=== PATIENT | female | born 1985 | race Caucasian/White ===

== ENCOUNTER 2019-02-10 21:16 | Inpatient (IN) ==
[2019-02-10] MEDS ORDERED: Ketorolac 15 MG/ML VIAL IVP ONE (21:45)
[2019-02-10] MEDS ORDERED: Ondansetron 4 MG/2 ML VIAL IVP ONE (21:45)
--- NOTE | 2019-02-10 21:53 | Emergency Department Note ---
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 No other associated co mplaints with it. She denies any vaginal discharge, vaginal bleeding, dysuria. Patient's pain is sharp and radiates to the left flank. She does have a previous history of kidney stones but states this feels a little bit different. The patient denies any chest pain, nausea, vomiting, diarrhea, melena, hematochezia. She does also state that her significant other is a new sexual partner and they are barrier contraceptive broke during last sexual intercourse. The patient states that she wants just a basic test for basic STD. Patient is adamant that she is having no vaginal discharge at this time. Pain Scale: 10 - Related Data Previous Rx's Medication Instructions Recorded Amoxicillin 875 mg PO BID #20 tablet 07/12/15 Allergies Allergy/AdvReac Type Severity Reaction Status Date / Time No Known Allergies Allergy Verified 02/10/19 21:23 All systems ED: reviewed and negative except as stated. Constitutional: Denies: fever, chills, weakness Eyes: Denies: vision change ENT ED: Denies: dysphagia Cardiovascular: Denies: chest pain Respiratory: Denies: dyspnea Gastrointestinal: Reports: abdominal pain. Denies: nausea, vomiting, diarrhea, constipation, hematemesis, melena, hematochezia Genitourinary: Denies: urgency, dysuria, frequency, hematuria, discharge, abnormal menses Musculoskeletal: Denies: back pain Integumentary: Denies: rash Neurological: Denies: headache Abdominal Pain PMH - Past Medical History Medical history: Reports: no medical history Female Surgical History: Reports: no surgical history Psychiatric history: Reports: anxiety - Social History Smoking status: Current every day smoker Alcohol use: Reports: none Drug use: Reports: other (Methadone) Physical Exam - General Limitations: no limitations General appearance: alert, in no apparent distress - Head Head exam: atraumatic, normocephalic, normal inspection - Eye Eye exam: Present: normal appearance, PERRL, EOMI - ENT ENT exam: normal exam, normal oropharynx, mucous membranes moist - Neck Neck exam: Present: normal inspection - Chest Chest inspection: Present: normal inspection, symmetric chest wall rise - Respiratory Respiratory exam: Present: normal lung sounds bilaterally - Cardiovascular Cardiovascular exam: Present: regular rate, normal rhythm - Abdominal Exam Abdominal exam: Present: soft, tenderness (Lower abdomen). Absent: distention, guarding, rebound, trauma, incision, psoas sign, Kuhn's sign, Rovsing's sign, tenderness at McBurney's Point - Extremities Exam Extremities exam: Present: normal inspection, full ROM, normal capillary refill. Absent: tenderness, pedal edema - Back Exam Back exam: Present: normal inspection, full ROM, CVA tenderness (L). Absent: tenderness, CVA tenderness (R) - Neurological Exam Neurological exam: Present: alert, oriented X3 - Skin Skin exam: Present: warm, dry, intact, normal color Course - Reevaluation(s) Reevaluation #1: Patient found to have a positive test here in the emergency department. A hCG quantitative level was obtained and was greater than 1500. Given the fact that is above the discriminatory zone, we will perform a pelvic ultrasound to determine if this is a sign of ectopic . The patient's urine is borderline infected. He will be sent for culture. In addition the patient is noted to have a leukocytosis which may be reactionary to the patient's pain. I am concerned about the patient's positive test and the lower, pain the patient is experiencing at this time. Patient ran stable here in the ED and is otherwise resting comfortably in the room. Time: 01:40 Reevaluation #2: I spoke with mental health tech who stated that she was a little suspicious. I looked at the ultrasound is reported currently pending. There was a questionable gestational sac outside of the uterus. Given the patient's elevated quantitative level at 2083 we will speak to MEAT COUNTER CLERK. Time: 02:42 - Consultations Consultation #1: I spoke with Dr. Haskins in ME[employer] [facility]TER [employer]ERK who requested that we administer IV Toradol at this time. She stated go ahead and wait until the formal report is resulted and see if the patient's pain is better controlled. Time: 02:49 Vital Signs Temperature 98.5 F 02/10/19 21:19 Pulse Rate 94 02/10/19 21:19 Respiratory Rate 20 02/10/19 21:19 Blood Pressure 141/90 02/10/19 21:19 O2 Sat by Pulse Oximetry 99 02/10/19 21:19 Temperature 98.5 F 02/10/19 21:23 Pulse Rate 97 02/11/19 03:10 Respiratory Rate 18 02/11/19 03:10 Blood Pressure 117/88 02/11/19 03:10 O2 Sat by Pulse Oximetry 98 02/11/19 03:10 Oxygen Delivery Oxygen Delivery Room Air Abdominal Pain - MDM Narrative Medical decision making narrative: Patient's ultrasound revealed concern for ruptured ectopic with positive blood and free fluid within the pelvis. No IUP was noted with a gestational sac with pole adjacent to the pelvic fundus with heterogeneous material noted in it. The patient will have a large-bore IV placed by ultrasound by the charge nurse. I spoke to Dr. Haskins in [facility] [facility] [employer] who will come and evaluate the patient the emergency department. The patient will be taken to the OR. - Lab Data Lab results reviewed: Yes I reviewed the patient's lab results. Result diagrams: 02/11/19 00:18 02/11/19 00:18 Lab Results 02/10/19 02/10/19 02/10/19 Range/Units 22:30 22:30 22:38 WBC (4.3-11.1) K/mcL RBC (3.82-4.97) M/mcL Hgb (11.5-15.4) g/dL Hct (35.3-44.9) % MCV (83.0-100.0) fL MCH (28.0-33.3) pg MCHC (31.6-35.5) g/dL RDW (11.5-14.5) % Plt Count (140-400) K/mcL MPV (9.4-12.4) fL Immature Gran % (0-4) % Seg Neutrophils % % Lymphocytes % % Monocytes % % Eosinophils % % Basophils % % Neutrophils # (1.6-8.9) K/mcL Lymphocytes # (0.6-4.6) K/mcL Monocytes # (0.0-1.3) K/mcL Eosinophils # (0.0-0.6) K/mcL Basophils # (0.0-0.2) K/mcL Sodium (136-145) mEq/L Potassium (3.5-5.1) mEq/L Chloride (98-107) mEq/L Carbon Dioxide (23-29) mEq/L BUN (6-20) mg/dL Creatinine (0.60-1.20) mg/dL Est GFR ( Amer) (> 60) Est GFR (Non-Af Amer) (> 60) BUN/Creatinine Ratio (6-26) Glucose (70-105) mg/dL Calculated Osmolality (280-300) Calcium (8.6-10.3) mg/dL Total Bilirubin (0.3-1.0) mg/dL Direct Bilirubin (0.0-0.2) mg/dL Indirect Bilirubin (0.0-1.2) mg/dL AST (13-39) Units/L ALT (7-52) Units/L Alkaline Phosphatase (34-104) Units/L Serum Total Protein (6.4-8.9) g/dL Albumin (3.5-5.7) g/dL Globulin (2.4-3.5) g/dL Albumin/Globulin Ratio (1.1-2.2) Lipase (11-82) Units/L Beta HCG, Quant (Less than 5) mIU/mL Urine Color Yellow (Yellow) Urine Clarity Cloudy A (Clear) Urine pH 6.0 (5.0-8.0) pH Units Ur Specific [place] 1.027 H (1.010-1.025) Urine Protein Negative (Neg-Trace) mg/dL Urine Glucose (UA) Normal (Normal) mg/dL Urine Ketones Negative (Negative) mg/dL Urine Blood Negative (Negative) Urine Nitrite Negative (Negative) Urine Bilirubin Negative (Negative) Urine Urobilinogen Normal (Normal) mg/dL Ur Leukocyte Esterase Large H (Negative) Urine Microscopic RBC 0-3 (0-3) per hpf Urine Microscopic WBC TNTC H (0-3) per hpf Ur Squamous Epith Cells Many H (None-Few) per lpf Urine Bacteria Few (None-Few) per hpf Hyaline Casts None Seen (None-Few) per lpf Ur Culture Indicated? YES A (NO) Urine Test Positive A (Negative) Ur C. trach DNA (PCR) NOT DETECTED (Not Detect) U N.gonorrhoeae DNA PCR NOT DETECTED (Not Detect) 02/11/19 02/11/19 02/11/19 Range/Units 00:18 00:18 00:18 WBC 16.9 H (4.3-11.1) K/mcL RBC 4.10 (3.82-4.97) M/mcL Hgb 12.3 (11.5-15.4) g/dL Hct 38.5 (35.3-44.9) % MCV 93.9 (83.0-100.0) fL MCH 30.0 (28.0-33.3) pg MCHC 31.9 (31.6-35.5) g/dL RDW 14.6 H (11.5-14.5) % Plt Count 495 H (140-400) K/mcL MPV 8.9 L (9.4-12.4) fL Immature Gran % 0.5 (0-4) % Seg Neutrophils % 82.2 % Lymphocytes % 13.1 % Monocytes % 3.4 % Eosinophils % 0.4 % Basophils % 0.4 % Neutrophils # 13.9 H (1.6-8.9) K/mcL Lymphocytes # 2.2 (0.6-4.6) K/mcL Monocytes # 0.6 (0.0-1.3) K/mcL Eosinophils # 0.1 (0.0-0.6) K/mcL Basophils # 0.1 (0.0-0.2) K/mcL Sodium 136 (136-145) mEq/L Potassium 4.3 (3.5-5.1) mEq/L Chloride 102 (98-107) mEq/L Carbon Dioxide 25 (23-29) mEq/L BUN 12 (6-20) mg/dL Creatinine 0.85 (0.60-1.20) mg/dL Est GFR ( Amer) > 60 (> 60) Est GFR (Non-Af Amer) > 60 (> 60) BUN/Creatinine Ratio 14 (6-26) Glucose 101 (70-105) mg/dL Calculated Osmolality 282 (280-300) Calcium 9.5 (8.6-10.3) mg/dL Total Bilirubin 0.4 (0.3-1.0) mg/dL Direct Bilirubin 0.1 (0.0-0.2) mg/dL Indirect Bilirubin 0.3 (0.0-1.2) mg/dL AST 16 (13-39) Units/L ALT 15 (7-52) Units/L Alkaline Phosphatase 55 (34-104) Units/L Serum Total Protein 7.4 (6.4-8.9) g/dL Albumin 4.4 (3.5-5.7) g/dL Globulin 3.0 (2.4-3.5) g/dL Albumin/Globulin Ratio 1.5 (1.1-2.2) Lipase 12 (11-82) Units/L Beta HCG, Quant 2083 H (Less than 5) mIU/mL Urine Color (Yellow) Urine Clarity (Clear) Urine pH (5.0-8.0) pH Units Ur Specific [place] (1.010-1.025) Urine Protein (Neg-Trace) mg/dL Urine Glucose (UA) (Normal) mg/dL Urine Ketones (Negative) mg/dL Urine Blood (Negative) Urine Nitrite (Negative) Urine Bilirubin (Negative) Urine Urobilinogen (Normal) mg/dL Ur Leukocyte Esterase (Negative) Urine Microscopic RBC (0-3) per hpf Urine Microscopic WBC (0-3) per hpf Ur Squamous Epith Cells (None-Few) per lpf Urine Bacteria (None-Few) per hpf Hyaline Casts (None-Few) per lpf Ur Culture Indicated? (NO) Urine Test (Negative) Ur C. trach DNA (PCR) (Not Detect) U N.gonorrhoeae DNA PCR (Not Detect) - Radiology Data Radiology results reviewed: Yes I reviewed the patient's radiology results. Obstetrics Ultrasound 02/11/19 01:20 IMPRESSION: 1. Limited evaluation as the patient is in severe pain. 2. There is no evidence of an intrauterine . There is an extrauterine gestational sac with a possible pole corresponding to 6 weeks and 0 days adjacent to the fundus of the uterus with surrounding heterogeneous fluid concerning for ruptured ectopic . 3. The left ovary is not visualized. Findings were discussed with Kenyon Concepcion DO at 2:56 am on 02/11/2019. D/ / Deneen Harding MD / Deneen Harding MD Interpreting Provider: Deneen Harding MD
[2019-02-10 22:49] LABS: Bilirubin,Urine Negative (Negative); Blood,Urine Negative (Negative); Clarity,Urine Cloudy (Clear); Color,Urine Yellow (Yellow); Glucose,Urine (UA) Normal (Normal); Ketones,Urine Negative (Negative); Leukocyte Esterase,Urine Large (Negative); Nitrite,Urine Negative (Negative); Protein,Urine Negative (Neg-Trace); Specific Gravity,Urine 1.027 (1.010-1.025); Urobilinogen,Urine Normal (Normal)
[2019-02-10 22:51] LABS: Hyaline Casts,Urine None Seen per lpf (None-Few); RBC,Urine 0-3 per hpf (0-3); Squamous Epithelial Cell,Urine Many per lpf (None-Few); WBC,Urine TNTC per hpf (0-3)
[2019-02-10 23:04] LABS: Bacteria,Urine Few per hpf (None-Few)
--- NOTE | 2019-02-10 23:39 | Emergency Department Note ---
Disposition Clinical Impression: Qualifiers: Weeks of gestation: less than 8 weeks Qualified Code(s): Z3A.01 - Less than 8 weeks gestation of Disposition: Still a Patient Condition: Good Forms: ED Satisfaction Letter, Work/School Release Time of Disposition: 23:40 General Adult HPI - General Chief complaint: ED Abdominal Pain Stated complaint: Constipated Time Seen by Provider: 02/10/19 21:35 Source: patient Mode of arrival: ambulatory Limitations: no limitations - History of Present Illness Pain Scale: 10 - Related Data Previous Rx's Medication Instructions Recorded Amoxicillin 875 mg PO BID #20 tablet 07/12/15 Allergies Allergy/AdvReac Type Severity Reaction Status Date / Time No Known Allergies Allergy Verified 02/10/19 21:23 Constitutional: Denies: fever, chills, weakness Eyes: Denies: vision change ENT ED: Denies: dysphagia Cardiovascular: Denies: chest pain Respiratory: Denies: dyspnea Gastrointestinal: Reports: abdominal pain. Denies: nausea, vomiting, diarrhea, constipation, hematemesis, melena, hematochezia Genitourinary: Denies: urgency, dysuria, frequency, hematuria, discharge, abnormal menses Musculoskeletal: Denies: back pain Integumentary: Denies: rash Neurological: Denies: headache Past Medical History - Past Medical History Medical history: Reports: no medical history Psychiatric history: Reports: anxiety - Social History Smoking Status: Current every day smoker Smokeless Tobacco Status: No Alcohol use: Reports: none Drug use: Reports: other (Methadone) Physical Exam - General Limitations: no limitations General appearance: alert, in no apparent distress Course Vital Signs Temperature 98.5 F 02/10/19 21:19 Pulse Rate 94 02/10/19 21:19 Respiratory Rate 20 02/10/19 21:19 Blood Pressure 141/90 02/10/19 21:19 O2 Sat by Pulse Oximetry 99 02/10/19 21:19 Temperature 98.5 F 02/10/19 21:23 Pulse Rate 78 02/10/19 23:09 Respiratory Rate 18 02/10/19 23:09 Blood Pressure 114/88 02/10/19 23:09 O2 Sat by Pulse Oximetry 100 02/10/19 23:09 Oxygen Delivery Oxygen Delivery Room Air Medical Decision Making - Lab Data Lab Results 02/10/19 02/10/19 Range/Units 22:30 22:30 Urine Color Yellow (Yellow) Urine Clarity Cloudy A (Clear) Urine pH 6.0 (5.0-8.0) pH Units Ur Specific [place] 1.027 H (1.010-1.025) Urine Protein Negative (Neg-Trace) mg/dL Urine Glucose (UA) Normal (Normal) mg/dL Urine Ketones Negative (Negative) mg/dL Urine Blood Negative (Negative) Urine Nitrite Negative (Negative) Urine Bilirubin Negative (Negative) Urine Urobilinogen Normal (Normal) mg/dL Ur Leukocyte Esterase Large H (Negative) Urine Microscopic RBC 0-3 (0-3) per hpf Urine Microscopic WBC TNTC H (0-3) per hpf Ur Squamous Epith Cells Many H (None-Few) per lpf Urine Bacteria Few (None-Few) per hpf Hyaline Casts None Seen (None-Few) per lpf Ur Culture Indicated? YES A (NO) Urine Test Positive A (Negative) Attestation Statement - Attestation Attestation: I examined this patient and my medical decision-making was reviewed with the Resident Physician. I agree with the documented findings, disposition and treatment plan as described except to the extent set forth below. 33 year old female presents to the ED with complaints of constpation and lwoer abdominal pain with cramps. Patient states that her LMP was january 20, and the last time that she had sexual intercourse was January 17. Esteban states that she has a week of vaginal bleeding with clots. Esteban is postiive urine test today and has bilateral pelvic pain. Esteban has a hcg quant pedning. Esteban [facility] US performed by myself does not show a definitive IUP as this is likely very early . [place] [facility]
[2019-02-11 00:40] LABS: Basophils # 0.1 K/mcL (0.0-0.2); Basophils % 0.4 %; Eosinophils # 0.1 K/mcL (0.0-0.6); Eosinophils % 0.4 %; Hematocrit 38.5 % (35.3-44.9); Hemoglobin 12.3 g/dL (11.5-15.4); Immature Granulocytes % 0.5 % (0-4); Lymphocytes # 2.2 K/mcL (0.6-4.6); Lymphocytes % 13.1 %; Mean Corpuscular HGB Conc 31.9 g/dL (31.6-35.5); Mean Corpuscular Volume 93.9 fL (83.0-100.0); Mean Platelet Volume 8.9 fL (9.4-12.4); Monocytes # 0.6 K/mcL (0.0-1.3); Monocytes % 3.4 %; Neutrophils # 13.9 K/mcL (1.6-8.9); Platelet Count 495 K/mcL (140-400); Red Cell Distribution Width 14.6 % (11.5-14.5); Segmented Neutrophils % 82.2 %
[2019-02-11 00:50] LABS: Alanine Aminotransferase 15 Units/L (7-52); Albumin 4.4 g/dL (3.5-5.7); Albumin/Globulin Ratio 1.5 (1.1-2.2); Alkaline Phosphatase 55 Units/L (34-104); Aspartate Amino Transferase 16 Units/L (13-39); BUN/Creatinine Ratio 14 (6-26); Bilirubin,Direct 0.1 mg/dL (0.0-0.2); Bilirubin,Indirect 0.3 mg/dL (0.0-1.2); Bilirubin,Total 0.4 mg/dL (0.3-1.0); Blood Urea Nitrogen 12 mg/dL (6-20); Calcium 9.5 mg/dL (8.6-10.3); Carbon Dioxide 25 mEq/L (23-29); Chloride 102 mEq/L (98-107); Glucose 101 mg/dL (70-105); Osmolality,Calculated 282 (280-300); Potassium 4.3 mEq/L (3.5-5.1); Sodium 136 mEq/L (136-145); Total Protein 7.4 g/dL (6.4-8.9); eGFR For Non-African Americans > 60 (> 60)
[2019-02-11 02:03] LABS: Chlamydia Trachomatis DNA Ur NOT DETECTED (Not Detect)
[2019-02-11] MEDS ORDERED: Ketorolac 15 MG/ML VIAL IVP ONE (02:47)
[2019-02-11] MEDS ORDERED: 0.9 % Sodium Chloride 1,000 ML IVC ONE (02:53)
[2019-02-11] MEDS ORDERED: 0.9 % Sodium Chloride 1,000 ML ONE (02:54)
[2019-02-11] MEDS ORDERED: *HR* FentaNYL (PF) 100 MCG/2 ML VIAL IVP ONE ×2 (03:23→04:30)
--- NOTE | 2019-02-11 04:09 | OB/GYN History & Physical ---
Date of Encounter: 02/11/19 Time of Encounter: 04:06 Assessment and Plan (1) Ruptured ectopic Current visit: Yes Status: Acute Plan for a diagnostic laparoscopy with evacuation of hemoperitoneum, possible open and possible hysterectomy. Risks, benefits and alternatives discussed and the patient signed consents. 2 units on hold and transfusion consent signed. We discussed the possibility of methotrexate therapy, following the laparoscopy, and the importance of close follow-up. Questions were answered and she verbalized understanding. (2) Methadone maintenance therapy patient Current visit: Yes Status: Chronic 69 mg of methadone daily. She last took at this morning. Plan for 30 mg of IV push Toradol every 6 hours for PO pain control. (3) BMI 40.0-44.9, adult Current visit: Yes Status: Chronic Plan for regular diet PO History of Present Illness Chief complaint: Abdominal pain HPI: Ms. River is a 33 year old female @ 6.0 wga [facility] She states that 4 days ago she started to have abdominal pain, bilateral lower quadrants radiating up to her right diaphragm/under her right breast, and it has worsened. Previously her pain was controlled on Motrin. Approximately 6 PM last night she states that she could no longer handle the pain and came to the emergency room. Lying flat makes the pain worse and heat, used to, they can feel better but no longer works. Her bet a-HCG was 2083 with a hemoglobin of 12.3 and white count of 16.9. Ultrasound showed hemoperitoneum and, what looks like, a gestational sac on the fundus with a pole versus yield sac. The first time she had intercourse in approximately 6 months was on January 18 and she states that the condom broke that time. She is not on any other form of contraception. She was given 10 mg of Toradol in the ED followed by 75 mg of fentanyl as the Toradol had little effect. She refuses narcotics for pain control secondary to her history of polysubstance abuse. She is currently on methadone and her last use of illicit substances was approximately 3 years ago. She denies any current vaginal bleeding, abnormal vaginal discharge, vaginal odor, pruritus, dysuria, nausea, vomiting, chest pain, shortness of breath, fever, chills, changes in bowel habits, unintentional weight gain or weight loss or other complaints today. Past Med Surg Social Fam HX - Past Medical History Medical history: no medical history (She denies any history of any renal, pulmonary, gastric or liver disease.) Psychiatric history: anxiety - Past Surgical History Surgical History: other (4 wisdom teeth removed at the age of 22) - Social History Smoking Status: Current every day smoker (Half a pack per day 11 years) Packs per day: 1/2 Smokeless Tobacco Status: No Alcohol use: none Drug use: other (Methadone secondary to a history of polysubstance abuse. 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 Denies history of STI's. She admits to an abnormal Pap smear in 2018 and states she is supposed to follow up in 1 year for repeat. She denies any history of cervical procedures. Medications and Allergies Amoxicillin 875 mg PO BID #20 tablet 07/12/15 [Rx] Allergy/AdvReac Type Severity Reaction Status Date / Time No Known Allergies Allergy Verified 02/10/19 21:23 Review of System OB All systems PM: reviewed and no additional remarkable complaints except as stated - Constitutional Constitutional ROS IM: as per HPI (All other systems are negative outside of the history of present illness.) Exam - Vital Signs Vital signs: Initial Vital Signs Temp Pulse Resp BP Pulse Ox 98.5 F 94 20 141/90 99 02/10/19 21:19 02/10/19 21:19 02/10/19 21:19 02/10/19 21:19 02/10/19 21:19 - Constitutional Constitutional: mild distress, obese - HEENT HEENT: Normocephaly, Mucus Membranes Moist - Neck Neck exam: supple - Lungs Respiratory exam: CTAB - Abdomen Abdomen: Present: bowel sounds normal, diffuse tenderness Abdomen detail: right upper quadrant: tenderness (+rebound), left upper quadrant: tenderness, left lower quadrant: tenderness - Comments Comments: No SVE performed secondary to strong impression of abdominal exam. Results Result Diagrams: 02/11/19 00:18 02/11/19 00:18 Abnormal lab results WBC 16.9 K/mcL (4.3-11.1) H 02/11/19 00:18 RDW 14.6 % (11.5-14.5) H 02/11/19 00:18 Plt Count 495 K/mcL (140-400) H 02/11/19 00:18 MPV 8.9 fL (9.4-12.4) L 02/11/19 00:18 13.9 K/mcL (1.6-8.9) H 02/11/19 00:18 Beta HCG, Quant 2083 mIU/mL (Less than 5) H 02/11/19 00:18 Cloudy (Clear) A 02/10/19 22:30 Ur Specific [place] 1.027 (1.010-1.025) H 02/10/19 22:30 Ur Leukocyte Esterase Large (Negative) H 02/10/19 22:30 TNTC per hpf (0-3) H 02/10/19 22:30 Ur Squamous Epith Cells Many per lpf (None-Few) H 02/10/19 22:30 Ur Culture Indicated? YES (NO) A 02/10/19 22:30 Positive (Negative) A 02/10/19 22:30 All other labs normal. US - abdomen: image reviewed (Gestational sac seen on the fundus, extrauterine, and measures 6 weeks and 0 days with a possible pole versus yolk sac.)
[2019-02-11] MEDS ORDERED: *HR* Succinylcholine 200 MG/10 ML VIAL IVP ONE (04:34)
[2019-02-11] MEDS ORDERED: Lidocaine -MPF 2% 2 ML VIAL ONE (04:34)
[2019-02-11] MEDS ORDERED: *HR* FentaNYL (PF) 100 MCG/2 ML VIAL ONE (04:34)
[2019-02-11] MEDS ORDERED: *HR* Propofol 200 MG/20 ML VIAL IVP ONE ×2 (04:34→07:42)
[2019-02-11] MEDS ORDERED: *HR* Midazolam HCl 2 MG/2 ML VIAL ONE (04:34)
[2019-02-11] MEDS ORDERED: *HR* Etomidate 40 MG/20 ML VIAL IVP ONE (04:38)
[2019-02-11] MEDS ORDERED: *HR* Promethazine 25 MG/ML VIAL IVP PRN (05:11)
[2019-02-11] MEDS ORDERED: Albuterol 2.5 MG/3 ML NEBULIZER IH ONE (05:11)
[2019-02-11] MEDS ORDERED: *HR* OxyCODONE Immed Rel 5 MG TABLET PO PRN (05:11)
[2019-02-11] MEDS ORDERED: *HR* FentaNYL (PF) 100 MCG/2 ML VIAL IVP PRN (05:11)
--- NOTE | 2019-02-11 05:12 | Anesthesia Evaluation PreOp ---
Date of Encounter: 02/11/19 Time of Encounter: 05:09 - Past History Planned Operation: Diagnostic laparoscopy, poss open, poss hysterectomy Cardiac History: Denies any Significant Hx Pulmonary History: Smoker CHAPLAIN RESIDENT History: Other (hx substance abuse - on methadone) Other Medical History: Other (BMI 41) Anesthesia History: No Prior Anesthetic Complications (no fhx of problems with anesthesia), Past Anesthesia (wisdom teeth surgery) Alcohol Use: none Drug use: other (Methadone secondary to a history of polysubstance abuse. Last use 3 years ago.) Medications and Allergies Amoxicillin 875 mg PO BID #20 tablet 07/12/15 [Rx] Allergy/AdvReac Type Severity Reaction Status Date / Time No Known Allergies Allergy Verified 02/10/19 21:23 - Meds/Allergy Pre-op Review Medications Reviewed: Yes Allergies Reviewed: Yes Beta Blockers on Current Med List: No Anesthesia Results - Labs 02/11/19 00:18 02/11/19 00:18 Anesthesia Exam Last Vital Signs Temp 98.5 F 02/10/19 21:23 Pulse 81 02/11/19 04:27 Resp 18 02/11/19 04:54 BP 109/68 02/11/19 04:54 Pulse Ox 99 02/11/19 04:27 Weight: 86 kg NPO (# of Hours): > 8 hrs - HEENT Pupil (Motor): Pupils equal, EOMI Mallampati: III Teeth: Normal Oral Opening: Greater than 3 - CHAPLAIN RESIDENT LOC: Oriented - Cardiac Rhythm: Regular Murmur: None - Pulmonary Breath Sounds: bilateral Clear Respiratory Effort: Symmetrical Anesthesia Assess/Plan ASA Score: 3 Level of consciousness: Cooperative Anesthetic Plan: General Monitoring Plan: Standard Monitors Recovery Plan: PACU
[2019-02-11] MEDS ORDERED: *HR* Vasopressin 20 UNIT/ML VIAL ONE (05:15)
[2019-02-11] MEDS ORDERED: MetroNIDAZOLE 500 MG/100 ML 500 MG/100 ML BAG IVPB ONE ×2 (05:15→05:28)
[2019-02-11] MEDS ORDERED: Bupivacaine/EPI 1:200k 0.25%PF 30 ML VIAL ONE (05:15)
[2019-02-11] MEDS ORDERED: KETAMINE HCL 50 MG/ML SYRINGE ONE (05:16)
[2019-02-11] MEDS ORDERED: Acetaminophen IV 1,000 MG/100 ML INFUS..BTL ONE (05:16)
[2019-02-11] MEDS ORDERED: ceFAZolin 2,000 MG in Water for inj. (sterile) 20 ML IVP ONE ×2 (05:28→07:00)
[2019-02-11] MEDS ORDERED: *HR* Rocuronium Bromide 50 MG/5 ML VIAL ONE (05:55)
[2019-02-11] MEDS ORDERED: Ketorolac 30 MG/ML VIAL ONE (06:16)
[2019-02-11] MEDS ORDERED: Ondansetron 4 MG/2 ML VIAL ONE (06:16)
[2019-02-11] MEDS ORDERED: Dexamethasone 4 MG/ML VIAL ONE ×2 (06:16→06:17)
[2019-02-11] MEDS ORDERED: Neostigmine Methylsulfate 3 MG/3 ML SYRINGE ONE (07:23)
[2019-02-11] MEDS ORDERED: *HR* HYDROMORPHONE 2 MG/ML VIAL ONE ×2 (07:23→07:45)
[2019-02-11] MEDS ORDERED: *HR* Belladonna Alkaloids/Opium 30 MG RECTAL SUPPOSITORY RC ONE ×2 (07:30→07:32)
[2019-02-11] MEDS ORDERED: SUGAMMADEX SODIUM 500 MG/5 ML VIAL IV ONE (07:35)
--- NOTE | 2019-02-11 09:06 | OB/GYN Procedure Note ---
Laparoscopy Procedure - Diagnosis Date of procedure: 02/11/19 Pre-op diagnosis: ectopic Post-op diagnosis: same - Procedure Laparoscopy procedure: operative laparoscopy, other (Left salpingectomy, evacuation of hemoperitoneum) Surgeon: Rosa Haskins Was there an animal assistant present: No Anesthesia Type: General Estimated blood loss (cc): 700 (Amount includes hemoperitoneum evacuated) Complications: none Urine output (cc): 100 Specimens: left fallopian tube (Containing products of conception) Findings: Moderate amount of hemoperitoneum. Unruptured left ectopic in proximal aspect of fallopian tube. 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 Disposition: observation Narrative: Operation Performed Operative Laparoscopy with Bilateral Salpingo-Oophorectomy Indication for Surgery 33yo @ 6.0 wga by US presented to the emergency room complaining of severe abdominal pain. Her pain had been worsening over the previous 4 days and was now refractory to oral ibuprofen. She states that her first episode of intercourse was on January 18" the condom broke". She denies any current vaginal bleeding, abnormal vaginal discharge, vaginal odor, pruritus, dysuria, nausea, vomiting, abdominal or pelvic pain, chest pain, shortness of breath, fever, chills, changes in bowel habits, unintentional weight gain or weight loss or other complaints today. The patient was informed of the risks and benefits of operative laparoscopy with bilateral salpingo-oophorectomy. Risks included but were not limited to bleeding, infection, injury to the vulva, vagina or cervix, uterine perforation, bowel, bladder, ureters and surrounding neurovascular bundles, and the need for subsequent procedures. The patient expressed understanding of the risks involved. All questions were answered and the patient consented to the procedure. Preoperative Diagnosis 1. Ectopic Postoperative Diagnosis 1. Left-sided ectopic Surgeon Rosa Haskins D.O. Can Tester(s) None Anesthesia General Estimated Blood Loss 700 mL and includes the volume of hemoperitoneum evacuated Urine Output 100 mL of clear yellow urine IV Fluids 2,000 mL crystalloid Findings Moderate amount of hemoperitoneum. Unruptured left ectopic in proximal aspect of fallopian tube. 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 Complications None Specimens Left fallopian tube containing products of conception Technique The patient was taken to the operating room where a timeout was performed to confirm correct patient and correct procedure. The patient was given general anesthesia and then positioned on the operating table in the dorsal lithotomy position with the legs supported using stirrups. All pressure points were padded and a warm blanket was placed to maintain control of core body temperature. The patient was then prepped and draped in the usual sterile fashion. A bimanual exam was performed and the uterus was found to be mobile. No adnexal masses palpable. A chase catheter was inserted into the bladder where it remained until the end of the case. A sponge stick was placed into the vagina. Following a glove change, attention was then turned to the abdomen. 0.25% Marcaine was used to inject into the infraumbilical area. A small incision was made with the scalpel and the umbilical port was placed under direct visualization. Following visual confirmation of abdominal entry, the abdomen was then insufflated with CO2 gas to approximately 3 L. A second port was placed in the right lower quadrant approximately, 1[address] the ASIS to the umbilicus, at McBurneys point, following injection of 0.25% Marcaine. Under direct visualization, the right lower quadrant trocar was placed without difficulty. The abdomen and pelvis were surveyed with the above noted findings. A 12 mm left lower quadrant port was placed under direct visualization. The suction asset protection detective was used to evacuate the hemoperitoneum and clots. The LigaSure and graspers were used to isolate the LEFT fallopian tube (containing the unruptured ectopic), seal, transect and remove the LEFT Fallopian tube. The left fallopian tube, containing the products of conception, was placed into an Endo Catch bag and removed through the 12 mm left lower quadrant port.. Good hemostasis was noted throughout the procedure. The pelvis was again surveyed and good hemostasis noted. The larger left lower quadrant port was closed with the Shashank-Denise laparoscopic port site closure system. The instruments were removed from the abdomen under direct visualization. The abdomen was desufflated of all gas and the left lower qu adrant port incision was closed with 4-0 Polysorb in an interrupted fashion followed by a layer of Dermabond. Band-Aids were then applied. The sponge stick and Chase catheter were removed in the normal fashion without any complications. At the end of the procedure, all needle sponge and instrument counts were noted to be correct 2. The patient tolerated the procedure well and was transferred to the recovery room in stable condition.
--- NOTE | 2019-02-11 10:12 | Anesthesia Evaluation Post Op ---
Date of Encounter: 02/11/19 Time of Encounter: 08:30 - Vital Signs Vital Signs: Vital Signs/O2 Sat/Glucose, Most Current Temp Pulse Resp BP Pulse Ox 02/11/19 09:30 98.4 F 76 16 107/73 95 02/11/19 09:00 97.4 F L 78 14 120/84 94 02/11/19 08:44 98.7 F 75 16 117/73 96 02/11/19 08:34 98.7 F 75 18 126/76 96 02/11/19 08:24 98.7 F 78 18 113/71 96 02/11/19 08:14 78 20 108/69 96 02/11/19 08:04 80 18 109/73 98 02/11/19 07:54 98.2 F 98 16 115/72 98 - Lungs Lungs: Clear Ascult./Percussion - Airway Airway: Non-obstructed - Cardiovascular Regular Rate - Mental Status Mental Status: Alert & Oriented, Answers Appropriately - Pain Pain Scale: 0 - Nausea Vomiting Nausea Vomiting: Not Present - Hydration Hydration: NPO - Discharge PostOp Status: Transfer Patient to floor
[2019-02-11] MEDS ORDERED: Acetaminophen 325 MG TABLET PO PRN (11:45)
[2019-02-11] MEDS ORDERED: Methadone Oral Concentrate 50 MG/5 ML UDC PO ONE (13:24)
[2019-02-11] MEDS ORDERED: Sennosides/Docusate Sodium TABLET PO ONE (17:46)
[2019-02-11] MEDS ORDERED: *HR* HYDROcodone/Acet 5/325 mg TABLET PO PRN (17:48)
--- NOTE | 2019-02-11 17:54 | Discharge Summary ---
Date of Encounter: 02/11/19 Time of Encounter: 17:54 - Discharge Diagnosis (1) Ruptured ectopic Priority: Primary Status: Acute Comments: Stable post op Pain not well controlled with methadone and NSAIDS. Per discussion with patient, Dr Hsakins, and myself, the patient was given Weir 5mg/325mg for pain control and will be discharged home with 15 tablets to be taken PRN or if needed at all. Follow up in the office with Dr Haskins next week. - Discharge Medications Prescriptions: New Ketorolac [Toradol] 10 mg PO Q6HR #20 tablet Simethicone [Gas-X] 80 mg PO Q6H PRN #15 tab.chew PRN Reason: Dyspepsia HYDROcodone/Acet 5/325 mg [Weir 5-325 mg] 1 tab PO Q6HR PRN 4 Days #15 tablet PRN Reason: Breakthrough Pain Ketorolac [Toradol] 10 mg PO Q4HR PRN tablet PRN Reason: Pain Acetaminophen [Tylenol] 650 mg PO Q6HR PRN tablet PRN Reason: Breakthrough Pain Continued Amoxicillin 875 mg PO BID #20 tablet Home Medications: Amoxicillin 875 mg PO BID #20 tablet 07/12/15 [Rx] Acetaminophen [Tylenol] 650 mg PO Q6HR PRN tablet 02/11/19 [Rx] HYDROcodone/Acet 5/325 mg [Weir 5-325 mg] 1 tab PO Q6HR PRN 4 Days #15 tablet 02/11/19 [Rx] Ketorolac [Toradol] 10 mg PO Q4HR PRN tablet 02/11/19 [Rx] Ketorolac [Toradol] 10 mg PO Q6HR #20 tablet 02/11/19 [Rx] Simethicone [Gas-X] 80 mg PO Q6H PRN #15 tab.chew 02/11/19 [Rx] Allergies/Adverse Reactions: Allergy/AdvReac Type Severity Reaction Status Date / Time No Known Allergies Allergy Verified 02/10/19 21:23 Data Procedures and tests throughout hospitalization: Laboratory Tests 02/10/19 02/10/19 02/10/19 22:30 22:30 22:38 WBC RBC Hgb Hct MCV MCH MCHC RDW Plt Count MPV Immature Gran % Seg Neutrophils % Lymphocytes % Monocytes % Eosinophils % Basophils % Neutrophils # Lymphocytes # Monocytes # Eosinophils # Basophils # Sodium Potassium Chloride Carbon Dioxide BUN Creatinine Est GFR ( Amer) Est GFR (Non-Af Amer) BUN/Creatinine Ratio Glucose Calculated Osmolality Calcium Total Bilirubin Direct Bilirubin Indirect Bilirubin AST ALT Alkaline Phosphatase Serum Total Protein Albumin Globulin Albumin/Globulin Ratio Lipase Beta HCG, Quant Urine Color Yellow Urine Clarity Cloudy A Urine pH 6.0 Ur Specific Rolfe 1.027 H Urine Protein Negative Urine Glucose (UA) Normal Urine Ketones Negative Urine Blood Negative Urine Nitrite Negative Urine Bilirubin Negative Urine Urobilinogen Normal Ur Leukocyte Esterase Large H Urine Microscopic RBC 0-3 Urine Microscopic WBC TNTC H Ur Squamous Epith Cells Many H Urine Bacteria Few Hyaline Casts None Seen Ur Culture Indicated? YES A Urine Test Positive A Ur C. trach DNA (PCR) NOT DETECTED U N.gonorrhoeae DNA PCR NOT DETECTED Blood Type Antibody Screen Crossmatch 02/11/19 02/11/19 02/11/19 00:18 00:18 00:18 WBC 16.9 H RBC 4.10 Hgb 12.3 Hct 38.5 MCV 93.9 MCH 30.0 MCHC 31.9 RDW 14.6 H Plt Count 495 H MPV 8.9 L Immature Gran % 0.5 Seg Neutrophils % 82.2 Lymphocytes % 13.1 Monocytes % 3.4 Eosinophils % 0.4 Basophils % 0.4 Neutrophils # 13.9 H Lymphocytes # 2.2 Monocytes # 0.6 Eosinophils # 0.1 Basophils # 0.1 Sodium 136 Potassium 4.3 Chloride 102 Carbon Dioxide 25 BUN 12 Creatinine 0.85 Est GFR ( Amer) > 60 Est GFR (Non-Af Amer) > 60 BUN/Creatinine Ratio 14 Glucose 101 Calculated Osmolality 282 Calcium 9.5 Total Bilirubin 0.4 Direct Bilirubin 0.1 Indirect Bilirubin 0.3 AST 16 ALT 15 Alkaline Phosphatase 55 Serum Total Protein 7.4 Albumin 4.4 Globulin 3.0 Albumin/Globulin Ratio 1.5 Lipase 12 Beta HCG, Quant 2083 H Urine Color Urine Clarity Urine pH Ur Specific Rolfe Urine Protein Urine Glucose (UA) Urine Ketones Urine Blood Urine Nitrite Urine Bilirubin Urine Urobilinogen Ur Leukocyte Esterase Urine Microscopic RBC Urine Microscopic WBC Ur Squamous Epith Cells Urine Bacteria Hyaline Casts Ur Culture Indicated? Urine Test Ur C. trach DNA (PCR) U N.gonorrhoeae DNA PCR Blood Type Antibody Screen Crossmatch 02/11/19 04:25 WBC RBC Hgb Hct MCV MCH MCHC RDW Plt Count MPV Immature Gran % Seg Neutrophils % Lymphocytes % Monocytes % Eosinophils % Basophils % Neutrophils # Lymphocytes # Monocytes # Eosinophils # Basophils # Sodium Potassium Chloride Carbon Dioxide BUN Creatinine Est GFR ( Amer) Est GFR (Non-Af Amer) BUN/Creatinine Ratio Glucose Calculated Osmolality Calcium Total Bilirubin Direct Bilirubin Indirect Bilirubin AST ALT Alkaline Phosphatase Serum Total Protein Albumin Globulin Albumin/Globulin Ratio Lipase Beta HCG, Quant Urine Color Urine Clarity Urine pH Ur Specific Rolfe Urine Protein Urine Glucose (UA) Urine Ketones Urine Blood Urine Nitrite Urine Bilirubin Urine Urobilinogen Ur Leukocyte Esterase Urine Microscopic RBC Urine Microscopic WBC Ur Squamous Epith Cells Urine Bacteria Hyaline Casts Ur Culture Indicated? Urine Test Ur C. trach DNA (PCR) U N.gonorrhoeae DNA PCR Blood Type A POSITIVE Antibody Screen NEGATIVE Crossmatch See Detail Labs on day of discharge: Labs from last 24 hours 02/11/19 02/11/19 02/11/19 04:25 00:18 00:18 WBC RBC Hgb Hct MCV MCH MCHC RDW Plt Count MPV Immature Gran % Seg Neutrophils % Lymphocytes % Monocytes % Eosinophils % Basophils % Neutrophils # Lymphocytes # Monocytes # Eosinophils # Basophils # Sodium 136 Potassium 4.3 Chloride 102 Carbon Dioxide 25 BUN 12 Creatinine 0.85 Est GFR ( Amer) > 60 Est GFR (Non-Af Amer) > 60 BUN/Creatinine Ratio 14 Glucose 101 Calculated Osmolality 282 Calcium 9.5 Total Bilirubin 0.4 Direct Bilirubin 0.1 Indirect Bilirubin 0.3 AST 16 ALT 15 Alkaline Phosphatase 55 Serum Total Protein 7.4 Albumin 4.4 Globulin 3.0 Albumin/Globulin Ratio 1.5 Lipase 12 Beta HCG, Quant 2083 H Urine Color Urine Clarity Urine pH Ur Specific Rolfe Urine Protein Urine Glucose (UA) Urine Ketones Urine Blood Urine Nitrite Urine Bilirubin Urine Urobilinogen Ur Leukocyte Esterase Urine Microscopic RBC Urine Microscopic WBC Ur Squamous Epith Cells Urine Bacteria Hyaline Casts Ur Culture Indicated? Urine Test Ur C. trach DNA (PCR) U N.gonorrhoeae DNA PCR Blood Type A POSITIVE Antibody Screen NEGATIVE Crossmatch See Detail 02/11/19 02/10/19 02/10/19 00:18 22:38 22:30 WBC 16.9 H RBC 4.10 Hgb 12.3 Hct 38.5 MCV 93.9 MCH 30.0 MCHC 31.9 RDW 14.6 H Plt Count 495 H MPV 8.9 L Immature Gran % 0.5 Seg Neutrophils % 82.2 Lymphocytes % 13.1 Monocytes % 3.4 Eosinophils % 0.4 Basophils % 0.4 Neutrophils # 13.9 H Lymphocytes # 2.2 Monocytes # 0.6 Eosinophils # 0.1 Basophils # 0.1 Sodium Potassium Chloride Carbon Dioxide BUN Creatinine Est GFR ( Amer) Est GFR (Non-Af Amer) BUN/Creatinine Ratio Glucose Calculated Osmolality Calcium Total Bilirubin Direct Bilirubin Indirect Bilirubin AST ALT Alkaline Phosphatase Serum Total Protein Albumin Globulin Albumin/Globulin Ratio Lipase Beta HCG, Quant Urine Color Urine Clarity Urine pH Ur Specific Rolfe Urine Protein Urine Glucose (UA) Urine Ketones Urine Blood Urine Nitrite Urine Bilirubin Urine Urobilinogen Ur Leukocyte Esterase Urine Microscopic RBC Urine Microscopic WBC Ur Squamous Epith Cells Urine Bacteria Hyaline Casts Ur Culture Indicated? Urine Test Positive A Ur C. trach DNA (PCR) NOT DETECTED U N.gonorrhoeae DNA PCR NOT DETECTED Blood Type Antibody Screen Crossmatch 02/10/19 22:30 WBC RBC Hgb Hct MCV MCH MCHC RDW Plt Count MPV Immature Gran % Seg Neutrophils % Lymphocytes % Monocytes % Eosinophils % Basophils % Neutrophils # Lymphocytes # Monocytes # Eosinophils # Basophils # Sodium Potassium Chloride Carbon Dioxide BUN Creatinine Est GFR ( Amer) Est GFR (Non-Af Amer) BUN/Creatinine Ratio Glucose Calculated Osmolality Calcium Total Bilirubin Direct Bilirubin Indirect Bilirubin AST ALT Alkaline Phosphatase Serum Total Protein Albumin Globulin Albumin/Globulin Ratio Lipase Beta HCG, Quant Urine Color Yellow Urine Clarity Cloudy A Urine pH 6.0 Ur Specific Rolfe 1.027 H Urine Protein Negative Urine Glucose (UA) Normal Urine Ketones Negative Urine Blood Negative Urine Nitrite Negative Urine Bilirubin Negative Urine Urobilinogen Normal Ur Leukocyte Esterase Large H Urine Microscopic RBC 0-3 Urine Microscopic WBC TNTC H Ur Squamous Epith Cells Many H Urine Bacteria Few Hyaline Casts None Seen Ur Culture Indicated? YES A Urine Test Ur C. trach DNA (PCR) U N.gonorrhoeae DNA PCR Blood Type Antibody Screen Crossmatch Preliminary micro results at discharge 02/10/19 22:30 Urine Culture - Preliminary Urine,Clean Catch Culture is incubating. - Impressions ITS Impressions Obstetrics Ultrasound 02/11/19 01:20 IMPRESSION: 1. Limited evaluation as the patient is in severe pain. 2. There is no evidence of an intrauterine . There is an extrauterine gestational sac with a possible pole corresponding to 6 weeks and 0 days adjacent to the fundus of the uterus with surrounding heterogeneous fluid concerning for ruptured ectopic . 3. The left ovary is not visualized. Findings were discussed with Kenyon Concepcion DO at 2:56 am on 02/11/2019. D/ / 02/11/2019 07:52:49 Deneen Harding MD / brian Interpreting Provider: Deneen Harding MD Date of admission: 02/11/19 13:31 Primary care physician: Jovana Medrano CNP Discharging clinician: Donna Cooper Anticipated date of discharge: 02/11/19 - Patient Status Disposition: Home, Self-Care Condition: Good Functional capacity at discharge: independent ambulation Overall status at discharge: patient is progressing back to baseline - Discharge Instructions Follow Up With: Rosa Haskins [Partnered Physician] - 02/20/19 11:30 am Jovana Medrano CNP [Primary Care Provider] - - Diet and Activity Activity: increase activity as tolerated Diet: regular diet Hospital Course CLAIMS ANALYST Reason for admission: other Discharge diagnosis: other (s) Time spent discussing smoking cessation with patient: 3 to 10 minutes Time Attestation: Total time spent providing and/or coordinating discharge services: Time Spent: Less than 30 minutes Exam - Constitutional Vitals: Temp Pulse Resp BP Pulse Ox 98.5 F 98 16 109/73 92 02/11/19 12:01 02/11/19 12:01 02/11/19 12:01 02/11/19 12:01 02/11/19 12:01 General appearance IM: cooperative, A&O X 3, pleasant - Respiratory Respiratory exam: Present: CTAB - Cardiovascular Cardiovascular exam IM: Present: RRR, +S1, +S2 - GI/Abdominal GI/Abdominal exam IM: normal bowel sounds, soft - Extremities Exam Extremities exam IM: Present: normal capillary refill, normal inspection, radial pulses palpable and symmetrical - Neurological Exam Neurological exam: alert, oriented X3 - Other Additional findings: No changes noted from previous exam - VTE Documentation of Mechanical Device: Intermittent pneumatic compression device
[2019-02-11] MEDS ORDERED: Simethicone 80 MG TAB.CHEW PO SCH (18:00)
[2019-02-11 18:28] LABS: Hematocrit 26.8 % (35.3-44.9)
[2019-02-11 18:44] LABS: Hemoglobin 8.9 g/dL (11.5-15.4)
== END 2019-02-11 20:55 | disposition home or self-care (01) | DRG 817 ==
LOC: 1NENUOBS 21:16 → EMEROOARM 21:16 → 1NENUOBS 02-11 04:56
PROVIDERS: ADMIT Obstetrics & Gynecology; ATTEND Obstetrics & Gynecology